=== PATIENT | male | born 1960 | race Native Hawaiian/Other Pacific Islander ===

== ENCOUNTER 2019-04-24 17:44 | Observation (INO) | payer OTHER ==
[~2019-04-24] VITALS: Ht 165.1 cm; Wt 147.4 kg
[2019-04-24] VITALS (10 sets, daily range): BP systolic 100–173; BP diastolic 50–76; TEMP 98.1–99.1
[2019-04-24 18:00] LABS: PLATELET COUNT 699 K/uL (142-355)
[2019-04-24 18:23] LABS: POTASSIUM 2.8 mmol/L (3.6-5.2)
[2019-04-25] VITALS (15 sets, daily range): BP systolic 90–122; BP diastolic 41–84; TEMP 98.1–99; Ht 165.1 cm; Wt 147.4 kg
[2019-04-25] MEDS ORDERED: INVOKANA100 MG PO (04:54)
[2019-04-25] MEDS ORDERED: FURO20TA67 PO ×2 (04:57→16:39)
[2019-04-25] MEDS ORDERED: LOSA50TA PO (04:59)
[2019-04-25] MEDS ORDERED: MAGNESIUM400 MG PO (05:00)
[2019-04-25] MEDS ORDERED: MECLIZINE HYDRO25 MG PO (05:04)
[2019-04-25] MEDS ORDERED: OMEP40CA PO (05:06)
[2019-04-25] MEDS ORDERED: PROTONIX20 MG PO (05:10)
[2019-04-25] MEDS ORDERED: KLOR-CON SPRIN10 MEQ PO (05:13)
[2019-04-25] MEDS ORDERED: ZITHROMAX500 MG PO (16:28)
[2019-04-25] MEDS ORDERED: AMOX875T8 PO (16:29)
[2019-04-25] MEDS ORDERED: CLOP75TA2 PO (16:32)
[2019-04-25] MEDS ORDERED: POTASSIUM CHLO20 ME1 PO (16:33)
[2019-04-25] MEDS ORDERED: CLON1TAB18 PO (16:33)
[2019-04-25] MEDS ORDERED: INSUINJP SC (16:34)
[2019-04-25] MEDS ORDERED: LIPITOR20 MG PO (16:35)
[2019-04-25] MEDS ORDERED: DULO60CA2 PO (16:35)
[2019-04-25] MEDS ORDERED: TRICOR48 MG PO (16:36)
[2019-04-25] MEDS ORDERED: TRIA37.541 PO (16:36)
[2019-04-25] MEDS ORDERED: GLIP10TA55 PO (16:37)
[2019-04-25] MEDS ORDERED: FLUD0.1T PO (16:37)
[2019-04-25] MEDS ORDERED: MONT10TA PO (16:38)
[2019-04-25] MEDS ORDERED: SEROQUEL50 MG PO (16:38)
[2019-04-25] MEDS ORDERED: WELLBUTRIN150 MG PO (16:39)
[2019-04-25] MEDS ORDERED: METOPROLOL25 M1 PO (16:40)
[2019-04-25] MEDS ORDERED: NEURONTIN800 MG PO (16:41)
[2019-04-25] MEDS ORDERED: ROXICODONE15 M1 PO (16:42)
[2019-04-25] MEDS ORDERED: NOVOLIN R100 UNIT/1 IM (16:45)
[2019-04-25] MEDS ORDERED: FINGERSTIX (16:47)
== END 2019-04-25 13:36 | disposition other institution (70) ==
LOC: ED 17:44 → ICU 19:15
PROVIDERS: Emergency Medicine; ADMIT Internal Medicine
DX: E87.6 Hypokalemia (principal); K21.9 Gastro-esophageal reflux disease without esophagitis; I10 Essential (primary) hypertension; I48.91 Unspecified atrial fibrillation; E78.49 Other hyperlipidemia; M15.8 Other polyosteoarthritis; I73.89 Other specified peripheral vascular diseases; E11.42 Type 2 diabetes mellitus with diabetic polyneuropathy; J18.8 Other pneumonia, unspecified organism
CPT/HCPCS: 80053; 81000; 82550; 84132; 84484; 85027; 87088; 93005; 99220; 99285; G0378

== ENCOUNTER 2020-06-18 13:24 | Outpatient (CLI) | payer OTHER ==
[~2020-06-18 13:24] MED LIST: AMOX875T8 PO; BUPR150T PO; CHOL100034 PO; CLON1TAB18 PO; CLOP75TA2 PO; DULO30CA PO; DULO60CA2 PO; FINGERSTIX; FLUD0.1T PO; FOLI1TAB26 PO; FURO20TA67 PO; GLIP10TA55 PO; INSUINJP SC; INVOKANA100 MG PO; KLOR-CON SPRIN10 MEQ PO; LIPITOR20 MG PO; LOSA50TA PO; MAGNESIUM400 MG PO; MECLIZINE HYDRO25 MG PO; METOPROLOL25 M1 PO; MONT10TA PO; NEURONTIN800 MG PO; NOVOLIN R100 UNIT/1 IM; OMEP40CA PO; POTASSIUM CHLO20 ME1 PO; PROTONIX20 MG PO; ROXICODONE15 M1 PO; SEROQUEL50 MG PO; TRAZ50TA36 PO; TRIA37.541 PO; TRICOR48 MG PO; WELLBUTRIN150 MG PO; ZITHROMAX500 MG PO
[2020-06-18 13:40] LABS: PLATELET COUNT 421 K/uL (142-355)
[2020-06-18 13:49] LABS: POTASSIUM 3.6 mmol/L (3.6-5.2)
== END 2020-06-18 22:04 | disposition home or self-care (01) ==
LOC: LAB 13:24
PROVIDERS: ATTEND Podiatrist
DX: L89.613 Pressure ulcer of right heel, stage 3 (principal); I11.0 Hypertensive heart disease with heart failure; I50.9 Heart failure, unspecified; I73.9 Peripheral vascular disease, unspecified
CPT/HCPCS: 80053; 85027